=== PATIENT | female | born 1990 | race Caucasian/White ===

== ENCOUNTER 2022-06-22 08:44 | Outpatient (CLI) | payer OTHER, SELFPAY ==
--- NOTE | 2022-06-22 08:45 | CRLHL7_ITS ---
For Patients: As a result of the Century Cures Act, medical imaging exams and procedure reports are released immediately into your electronic medical record. You may view this report before your referring provider. If you have questions, please contact your health care provider. INDICATION: First trimester scan, establish dates. COMPARISON: None. TECHNIQUE: Real-time wallis-scale imaging of the pelvis was performed. FINDINGS: Intrauterine gestational sac is present with a mean sac diameter of 15.3 cm and sonographic age of 6 weeks 1 day. pole is present with crown-rump length measuring 3 millimeters corresponding to a 6 week 0 day gestation. Yolk sac is normal measuring 3.2 millimeters. No heart tones on today`s exam. The ovaries are normal. Incidental corpus luteal cyst left ovary. No ectopic . IMPRESSION: Intrauterine pole is present measuring 3.4 millimeters without heart tones. This may simply represent a very early intrauterine and follow-up and 11-14 days is recommended. Dictated by Jared Oliver MD @ 06/22/2022 9:38:13 AM (Electronically Signed)
== END 2022-06-22 08:45 | disposition home or self-care (01) ==
LOC: US 08:45
PROVIDERS: PCP Family Medicine; Visit Provider Advanced Practice Midwife
DX: Z34.91 Encounter for supervision of normal pregnancy, unspecified, first trimester (principal); Z3A.01 Less than 8 weeks gestation of pregnancy
CPT/HCPCS: 76817

== ENCOUNTER 2022-06-24 10:10 | Outpatient (CLI) | payer OTHER, SELFPAY | END 2022-06-24 10:11 | disposition home or self-care (01) | LOC: NFLDREF 10:11 | PROVIDERS: PCP Family Medicine; Visit Provider Advanced Practice Midwife | DX: O03.9 Complete or unspecified spontaneous abortion without complication (principal) | CPT/HCPCS: 84702 ==

== ENCOUNTER 2022-07-02 11:28 | Outpatient (CLI) | payer OTHER, SELFPAY | END 2022-07-02 11:29 | disposition home or self-care (01) | PROVIDERS: Advanced Practice Midwife; PCP Family Medicine; Visit Provider Advanced Practice Midwife | DX: O03.9 Complete or unspecified spontaneous abortion without complication (principal); N93.9 Abnormal uterine and vaginal bleeding, unspecified | CPT/HCPCS: 84702 ==

== ENCOUNTER 2022-08-13 12:39 | Outpatient (CLI) | payer OTHER, SELFPAY ==
[2022-08-13 13:42] LABS: Albumin* 4.9 g/dL (3.3-5.0); Chloride* 103 mmol/L (96-114); Sodium* 139 mmol/L (135-149)
[2022-08-13 13:44] LABS: Carbon Dioxide* 29 mmol/L (20-32); Cholesterol* 209 mg/dL (90-199); Creatinine* 0.6 mg/dL (0.5-1.5); Estimated Glomerular Filt Rate 121 ml/min
[2022-08-13 13:45] LABS: Alanine Aminotransferase* 23 U/L (4-35); Alkaline Phosphatase* 43 U/L (40-150); Aspartate Amino Transferase* 28 U/L (12-35); Bilirubin Total* 1.1 mg/dL (0.1-1.5); Blood Urea Nitrogen* 15 mg/dL (5-24); Calcium* 9.5 mg/dL (8.4-10.6); Glucose* 89 mg/dL (60-115); HDL Cholesterol* 85 mg/dL (>=50); LDL Cholesterol Calculated 110 mg/dL (<100); Total Protein* 7.6 g/dL (6.0-8.3); Triglycerides* 71 mg/dL (40-149)
== END 2022-08-13 12:40 | disposition home or self-care (01) ==
PROVIDERS: PCP Family Medicine; Visit Provider Family Medicine
DX: Z00.00 Encounter for general adult medical examination without abnormal findings (principal); R79.89 Other specified abnormal findings of blood chemistry; E78.5 Hyperlipidemia, unspecified
CPT/HCPCS: 80053; 80061

== ENCOUNTER 2022-09-29 14:01 | Outpatient (CLI) | payer OTHER, SELFPAY | END 2022-09-29 14:02 | disposition home or self-care (01) | LOC: NFLDREF 09-30 02:51 | PROVIDERS: PCP Family Medicine; Referring Provider Family Medicine; Visit Provider Physician Assistant | DX: Z34.90 Encounter for supervision of normal pregnancy, unspecified, unspecified trimester (principal) | CPT/HCPCS: 84702 ==

== ENCOUNTER 2022-10-01 12:36 | Outpatient (CLI) | payer OTHER, SELFPAY | END 2022-10-01 12:37 | disposition home or self-care (01) | LOC: NFLDREF 17:41 | PROVIDERS: PCP Family Medicine; Referring Provider Family Medicine; Visit Provider Physician Assistant | DX: Z34.90 Encounter for supervision of normal pregnancy, unspecified, unspecified trimester (principal) | CPT/HCPCS: 84702 ==

== ENCOUNTER 2022-10-19 15:49 | Outpatient (CLI) | payer OTHER, SELFPAY ==
[2022-10-19 22:58] LABS: Chlamydia DNA Amplified* Not Detected (No Detected); GC DNA Amplified* Not Detected (No Detected)
== END 2022-10-19 15:50 | disposition home or self-care (01) ==
PROVIDERS: PCP Family Medicine; Visit Provider Physician Assistant
DX: Z34.91 Encounter for supervision of normal pregnancy, unspecified, first trimester (principal); Z3A.08 8 weeks gestation of pregnancy
CPT/HCPCS: 76817; 86592; 86703; 86762; 86787; 86803; 86850; 86900; 86901; 87086; 87340; 87491; 87591

== ENCOUNTER 2022-10-25 12:50 | Outpatient (CLI) | payer OTHER, SELFPAY ==
--- NOTE | 2022-10-25 13:00 | CRLHL7_ITS ---
For Patients: As a result of the Century Cures Act, medical imaging exams and procedure reports are released immediately into your electronic medical record. You may view this report before your referring provider. If you have questions, please contact your health care provider. INDICATION: Spotting TECHNIQUE: Real-time wallis-scale imaging of the pelvis was performed. Comparison ultrasound 10/19/2022 FINDINGS: Sonographic imaging demonstrates a single living intrauterine gestation. The embryo demonstrates a regular cardiac rate measuring 171 beats per minute. The embryo`s crown-rump length measurement of 2.4 cm corresponds to a gestational age of 9 weeks 1 day with a sonographic due date of 05/29/2023. Subchorionic hemorrhage measuring 2.8 x 1.6 x 2.8 centimeters. Yolk sac normal. IMPRESSION: 1.Early intrauterine gestation at 9 weeks 1 day with OTIS of 05/29/2023. 2.Subchorionic hemorrhage measuring 2.8 x 1.6 x 2.8 centimeters within the right uterus / lower uterine segment. Dictated by Sia Goodrich MD @ 10/25/2022 1:54:11 PM (Electronically Signed)
== END 2022-10-25 12:51 | disposition home or self-care (01) ==
LOC: US 12:51
PROVIDERS: PCP Family Medicine; Visit Provider Obstetrics & Gynecology
DX: O20.9 Hemorrhage in early pregnancy, unspecified (principal); Z3A.09 9 weeks gestation of pregnancy
CPT/HCPCS: 76817

== ENCOUNTER 2023-01-11 08:07 | Outpatient (CLI) | payer OTHER, SELFPAY ==
--- NOTE | 2023-01-11 08:15 | CRLHL7_ITS ---
For Patients: As a result of the Century Cures Act, medical imaging exams and procedure reports are released immediately into your electronic medical record. You may view this report before your referring provider. If you have questions, please contact your health care provider. INDICATION: Evaluate anatomy. COMPARISON: 10/25/2022, 10/19/2022 TECHNIQUE: Real time wallis scale imaging of the fetus was performed as well as color Doppler analysis of the umbilical vessels. FINDINGS: Sonographic imaging demonstrates a single living intrauterine gestation. Fetus demonstrates a regular cardiac rate of 149 beats per minute. Fetus has a vertex position. The placenta lies anteriorly without evidence of placenta previa. The edge of the placenta is located 7.7 cm from the internal cervical os. Amniotic fluid volume appears normal. Single deepest vertical pocket: 4.9 cm. The cervix is closed and measures 5.5 cm in length. The composite ultrasound gestational age is calculated at 21 weeks 0 days with an estimated sonographic due date of 05/24/2023. The estimated weight is 430 grams which lies at the greater than 97th %. The following biometric measurements were obtained: Biparietal diameter: 4.7 cm/20 weeks 2 days 60th% Head circumference: 18.1 cm/20 weeks 4 days 66th% Abdominal circumference: 17.6 cm/22 weeks 4 days greater than 97th% Femur length: 3.4 cm/20 weeks 5 days 67th% The HC/AC ratio measures: 1.03 range (1.06-1.25) On anatomic survey, there is a normal appearance of the cerebral ventricles, cavum septi pellucidi, cisterna magna and cerebellum. The nose, lips, and facial profile appear normal. The cervical, thoracic and lumbar spine are well visualized and appear normal. There is a normal four-chamber heart view and the left and right ventricular outflow tracts appear normal. The diaphragm and stomach appear normal. The kidneys and bladder also appear normal. There is a normal three-vessel cord and cord insertion site. The four extremities appear normal. IMPRESSION: Sonographic gestational age 21 weeks 0 days and sonographic due date of 05/24/2023. Sonographic age one-week Ativan clinical age. Estimated weight greater than 97th percentile. Abdominal circumference greater than 97th percentile. No intrinsic abnormalities noted on anatomic survey. Dictated by Jared Oliver MD @ 01/11/2023 11:54:49 AM (Electronically Signed)
== END 2023-01-11 08:08 | disposition home or self-care (01) ==
PROVIDERS: PCP Family Medicine; Visit Provider Advanced Practice Midwife
DX: Z34.92 Encounter for supervision of normal pregnancy, unspecified, second trimester (principal); Z3A.20 20 weeks gestation of pregnancy
CPT/HCPCS: 76805

== ENCOUNTER 2023-03-09 14:29 | Outpatient (CLI) | payer OTHER, SELFPAY | END 2023-03-09 14:30 | disposition home or self-care (01) | LOC: NFLDREF 03-12 12:11 | PROVIDERS: PCP Family Medicine; Referring Provider Family Medicine; Visit Provider Obstetrics & Gynecology | DX: Z34.93 Encounter for supervision of normal pregnancy, unspecified, third trimester (principal); Z3A.28 28 weeks gestation of pregnancy | CPT/HCPCS: 86592 ==

== ENCOUNTER 2023-03-18 07:46 | Outpatient (CLI) | payer OTHER, SELFPAY | END 2023-03-18 07:47 | disposition home or self-care (01) | LOC: NFLDREF 03-22 09:15 | PROVIDERS: PCP Family Medicine; Referring Provider Family Medicine; Visit Provider Obstetrics & Gynecology | DX: Z34.93 Encounter for supervision of normal pregnancy, unspecified, third trimester (principal); Z3A.29 29 weeks gestation of pregnancy | CPT/HCPCS: 82951; 82952 ==

== ENCOUNTER 2023-05-02 09:12 | Outpatient (CLI) | payer OTHER, SELFPAY ==
--- NOTE | 2023-05-02 09:15 | CRLHL7_ITS ---
For Patients: As a result of the Century Cures Act, medical imaging exams and procedure reports are released immediately into your electronic medical record. You may view this report before your referring provider. If you have questions, please contact your health care provider. INDICATION: Third trimester scan, evaluate growth. COMPARISON: 01/11/2023 TECHNIQUE: Real time wallis scale imaging of the fetus was performed. FINDINGS: Sonographic imaging demonstrates a single living intrauterine gestation. Fetus demonstrates a regular cardiac rate of 127 beats per minute. Fetus has a vertex position. The placenta lies anteriorly. Amniotic fluid volume appears normal and there is a single deepest vertical pocket: 6.8 cm. The estimated weight is 2942gm which lies at the 67th %. On the prior OB ultrasound exam dated 01/11/2023 the estimated weight was at the greater than 97th%. BPD 18th percentile. HC 52nd percentile. AC 89th percentile. FL 39th percentile. The HC/AC ratio measures 0.99 range (0.92-1.08). IMPRESSION: Sonographic gestational age 36 weeks 1 day and sonographic due date of 05/29/2023. Good correlation with dates. Normal interval growth. Estimated weight 67th percentile. Abdominal circumference 89th percentile. Dictated by Jared Oliver MD @ 05/02/2023 10:12:47 AM (Electronically Signed)
== END 2023-05-02 09:13 | disposition home or self-care (01) ==
LOC: US 09:12
PROVIDERS: PCP Family Medicine; Visit Provider Obstetrics & Gynecology
DX: Z34.93 Encounter for supervision of normal pregnancy, unspecified, third trimester (principal); Z3A.36 36 weeks gestation of pregnancy
CPT/HCPCS: 76816; 87081; 87653

== ENCOUNTER 2023-05-04 14:06 | Outpatient (CLI) | payer OTHER, SELFPAY ==
[2023-05-04 14:20] VITALS: BP 120/72; PULSE 90
[2023-05-04 14:23] VITALS: RESP 16; TEMP 36.8
[2023-05-04 15:29] LABS: Amnisure Rom* Negative
[2023-05-04 15:58] LABS: Clue Cells No Clue Cells Seen (None Seen); Trichomonas No Trichomonas Seen (None Seen); Yeast No Yeast Seen (None Seen)
--- NOTE | 2023-05-04 16:52 | PM.OBLDTN ---
OB - Triage/Final Diagnosis Visit Information Time Seen by Provider: 16:30 Date Seen: 05/04/23 Date of evaluation: 05/04/23 Narrative: The patient is a 1 year old 2 para 1001 at 36 1/7 weeks gestation by LMP, who presents with complaint of vaginal spotting. This occurred twice. Denies painful uterine contractions, though has occasional tightening. Denies a decrease in movement. Feels well hydrated. Denies dysuria. Has some vaginal discharge, without vulvovaginal itching or irritation. The patient has a history of delivery, and at this time, is uncertain whether she desires TOLAC or repeat delivery. She has been discussing mode of delivery with Dr. Gleason. Evaluation Laboratory results: Laboratory Tests 05/04/23 Range/Units 15:02 Membrane Rupture Negative Vaginal Trichomonas No Trichomonas Seen (None Seen) Vaginal Yeast No Yeast Seen (None Seen) Vaginal Clue Cells No Clue Cells Seen (None Seen) Vital signs: Vital Signs - 24 hr 05/04/23 14:20 05/04/23 14:23 Temperature 98.2 F Pulse Rate 90 Respiratory Rate 16 Blood Pressure 120/72 Comments: General appearance: Alert, cooperative white female in no acute distress Abdomen: Soft, gravid, nontender vertex presentation by Omar's : Normal external female genitalia Extremities: Nonedematous, well perfused Labs: AmniSure negative. Wet prep negative. heart rate monitoring: Category 1. Uterine activity monitoring: Occasional mild contractions, irregular Fetus (Single) Heart Rate Baseline: 125 Thermograph Operator Variability: Moderate (6-25) Monitor Accelerations: Present Monitor Decelerations: None Final Diagnosis (1) Spotting affecting in third trimester: Status: Acute (2) Previous delivery affecting : Status: Acute (3) Spotting affecting in third trimester: Status: Acute (4) Previous delivery affecting : Status: Acute OB - Problem Based A/P Additional Plan (1) Spotting affecting in third trimester: Status: Acute (2) Previous delivery affecting : Status: Acute Plan At this time, the patient is not actively bleeding, and there is no sign of active labor. Her AmniSure and wet prep were both negative. Will plan to discharge her to home with instructions to return for decreased movement, renewed vaginal bleeding, increased contraction intensity or frequency, or abdominal pain. Otherwise, follow-up is scheduled in clinic.
--- NOTE | 2023-05-04 17:10 | PC.OBNST ---
NST Note NST Note Start: 05/04/23 14:22 Freq: ONCE Status: Active Protocol: Document 05/04/23 17:08 MALDONADO (Rec: 05/04/23 17:09 MALDONADO [id number]) NST Note 2 Para (# of births) 1 EDC 05/31/23 Gestational Age In Weeks & Days 36 Weeks & 1 Days Patient Presented with Complaint(s) of Leaking fluid,Vaginal bleeding Reactive Yes Appropriate for Gestational Age Yes RN Kristie Logan RN Date 05/04/23 Reactive Yes Appropriate for Gestational Age Yes DANIEL Ledezma RN Date 05/04/23 OB NST charge Yes Complete NST Note via Write Note Yes The provider's electronic signature indicates the NST is reactive/appropriate for gestational age. *Note to provider: If an addendum is required, open the patient's chart and click on the note under the Nurse/Allied Health tab.
== END 2023-05-04 16:40 | disposition home or self-care (01) ==
LOC: OB OUT 14:06 → OB 14:07
PROVIDERS: PCP Family Medicine; Visit Provider Advanced Practice Midwife
DX: O26.853 Spotting complicating pregnancy, third trimester (principal); Z3A.36 36 weeks gestation of pregnancy
CPT/HCPCS: 59025; 84112; 87210; 99213

== ENCOUNTER 2023-05-05 09:40 | Inpatient (IN) | payer OTHER, SELFPAY ==
[2023-05-05] VITALS (12 sets, daily range): BP systolic 97–124; BP diastolic 55–78; PULSE 71–87; RESP 14–16; TEMP 36.6–37.2; BMI 23.7
[2023-05-05 09:14] LABS: Amnisure Rom* POSITIVE
[2023-05-05] MEDS: OXYTOCIN 30 unit/500 ML in NS 30 UNIT/500 ML BAG IVPB (10:15)
[2023-05-05] MEDS: LACTATED RINGERS 1000 ML 1,000 ML 125 ML IV ×2 (10:15→18:40)
--- NOTE | 2023-05-05 10:21 | P.OBHP_ITS ---
OB - H&P: HPI Labor/Induction History of Present Illness Time Seen by Provider: 10:00 Date Seen: 05/05/23 Chief Complaint: The patient is a 33 year old 3 para 1011 at 36 and 2/7 weeks gestation by LMP consistent with a 1st trimester ultrasound, who presents with leaking fluid vaginally since she woke up at 4:30 a.m. today. AmniSure positive. Brett sporadically. Chief complaint: Maternity : 3 Para: 1 Indications for induction: other (PPROM) Narrative: HPI: Gerardo Keller is a 33 year old female 3 para 1011 at 36 weeks and 2 days gestation with pre term premature rupture of membranes. She desires a trial of labor after . Consent form reviewed and questions answered. 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 She notice clear leaking at 4:30 a.m. this morning. She has continued to have small amount of leaking since then. GBS negative. Her last baby born by for intolerance of labor and chorioamnionitis. OBSTETRIC HISTORY: Total number of pregnancies: 1. Full term: 1. Premature: 00. Abortions: 0. Miscarriages: 1. Ectopics: 0. Number of living children: 1 Previous Deliveries: 1. Date: 12/19/2019. Male, Domo. 40+4. 9 lb 10 oz. delivery for chorioamnionitis and nonreassuring status. Delivered at [place]. No other complications. 2. Spontaneous SAB Contraception being uses during time of conception: no. Last menstrual period normal: Yes. Usual length of cycle: 28 days. Treatment for infertility: No. LMP: 08/24/2022. Last pap: 04/21/2018. History of abnormal pap: Yes, please see problem list. History of STI or PID: Denies History of MRSA: Denies. PAST MEDICAL HISTORY: See problem list IMMUNIZATIONS: Up-to-date, COVID vaccinated. 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 Marital status: . Anglican/cultural needs: no. Chemical or radiation exposure: no. Pre- tobacco use: No. Pre- alcohol use: no. Current tobacco use: no. Current alcohol use: no. Recreational drug use: no. Dietary restrictions: no. Blood transfusion acceptable in an emergency: yes. FAMILY AND GENETIC HISTORY: Negative for recurrent loss, defects, inheritable disease Father: Factor 5 Leiden mutation Mother and maternal grandmother: Hypertension PSYCHOSOCIAL HISTORY: History of depression or currently depressed: no. Current physical, emotional, or sexual mistreatment: no. Problems that will make it hard to make it to appointments: no. Past medical, surgical, family and social histories were reviewed in the patient's electronic medical record. Specific Issues/Plans Girl! Cristi Garcia Son: Domo Spouse: Heraclio 1. Factor 5 Leiden mutation, heterozygous * No personal history of VTE * Father with history of a DVT * Per ACOG recommendations: Surveillance versus prophylactic anticoagulation. Patient declines anticoagulation. * : prophylactic anticoagulation therapy or intermediate dose low molecular weight heparin/unfractioned heparin * Aspirin 81 mg 2. History of macrosomia, 9 lb 10 oz * EFW >97% at 20wk scan, AC >97% 3. History of , chorioamnionitis and nonreassuring status. Considering TOLAC. * Desires * Growth ultrasound at 36 weeks: ordered * TOLAC consent: Given to patient on 03/23/23. Signed 04/04/2023. 4. History of LEEP * LEEP 2012: CHANA 2 with clear margins. Normal Pap with HPV 01/2014, 03/2015, 04/2018 * Deferred Pap at new OB, Pap 5. Bleeding at 8 weeks, 6 days. Viable IUP. Subchorionic hemorrhage 2.8 cm in greatest dimension. Blood type O+. 6. Abnormal 1 hour glucose screen 03/09/2023: 164 * 3 hour GTT 03/18/2023: 74/156/105/110 (Normal) TDAP: 03/23/23 History of Present Dating criteria: based on LMP care: good care Ultrasounds: normal 1st trimester US and normal mid trimester US complications comment: PPROM today at 04:30Am, clear fluid Medical complications: none Labs Blood type: O (+) positive Rubella: immune RPR/VDLR: nonreactive GBS status: negative HBsAG: negative Meds Home Medications and Allergies Home Medications Medication Instructions Recorded Confirmed Type docosahexaenoic acid 200 mg mg PO 10/19/22 05/02/23 History capsule ( DHA) omega 4-eav-rba-fish oil 300 1 cap PO QDAY 10/19/22 05/05/23 History mg-1,000 mg capsule (Fish Oil) aspirin 81 mg tablet,delayed 81 mg PO QDAY 11/16/22 05/05/23 History release (Enteric Coated Aspirin) apple cider vinegar gummy PO DAILY 12/14/22 05/02/23 History Allergies Allergy/AdvReac Type Severity Reaction Status Date / Time amoxicillin Allergy Mild Abdominal Verified 05/02/23 10:06 Pain itraconazole Allergy Mild Rash Verified 05/02/23 10:06 OB - H&P: Exam Physical Exam: Vital signs: Temp Pulse BP 97.9 F 87 124/78 05/05/23 08:56 05/05/23 08:56 05/05/23 08:56 Narrative: GENERAL APPEARANCE: Pleasant, , well-groomed woman in no acute distress. VITAL SIGNS: as noted in nursing notes HEAD: Pupils are equal, round and reactive to light. No oral-pharyngeal erythema or exudate. Normocephalic, atraumatic. NECK: Normal range of motion. Supple and nontender. THYROID: no masses, nodularity, tenderness or enlargement. LUNGS: Clear to auscultation bilaterally without wheezes, rales or rhonchi. HEART: Regular rate and rhythm with normal S1 and S2. No gallop, rub or murmur. ABDOMEN: Gravid, nontender appropriate fundal height for gestation. EFM: Baseline 130bpm, moderate variability, accelerations: Present, dece lerations: Absent. Reactive. Category 1. TOCO: Irritability with sporadic contractions that the patient states feels like ?Irvin Kemp?. SVE per nursing: Closed/long/thick/high EXTREMITIES: No cyanosis, clubbing, or edema. No varicosities. NEUROLOGIC: Normal gait and balance. Normal deep tendon reflexes at bilateral patella 2+/2, equal without clonus. PSYCHIATRIC: alert and oriented x3. Normal speech pattern, eye contact and affect. SKIN: Warm, dry, and well perfused. Good turgor. No lesions, nodules or rashes. OB - Problem Based A/P Additional Plan (1) premature rupture of membranes (PPROM) delivered, current hospitalization: Start date: 05/05/23 Start time: 04:30 Problem details: Clear fluid Status: Acute Plan: 1. Patient is planning a TOLAC. 2. Prostaglandins are contraindicated in patients were attempting a vaginal after section. 3. Cervical balloon contraindicated in patient with premature rupture of membranes. Due to increased risk for infection with a foreign body in place. 4. Start Pitocin per induction protocol. 5. Continuous heart rate and contraction monitoring. 6. GBS negative, blood type O positive (2) : Status: Acute
[2023-05-05 11:18] LABS: Basophils Absolute Auto 0.02 K/uL (0.00-0.30); Basophils Percent Auto 0.3 % (0.0-3.0); Eosinophils Absolute Auto 0.01 K/uL (0.00-0.50); Eosinophils Percent Auto 0.2 % (0.0-7.0); Hematocrit 36.5 % (33.0-51.0); Hemoglobin* 12.3 gm/dL (12.0-16.0); Immature Granulocytes Abs Auto 0.02 K/uL (0.00-0.30); Immature Granulocytes Pct Auto 0.3 %; Lymphocytes Absolute Auto 1.45 K/uL (0.90-2.90); Lymphocytes Percent Auto 22.1 % (20-44); Mean Corpuscular HGB Conc 34 gm/dL (32-36); Mean Corpuscular Hemoglobin 30 pg (26-34); Mean Corpuscular Volume 89 fL (80-100); Monocytes Percent Auto 6.1 % (0.0-11.0); Neutrophils Absolute Auto 4.67 K/uL (1.7-7.0); Platelet Count* 179 K/uL (140-440); RDW Coefficient of Variation % 12.8 % (11.5-15.5); Red Blood Count 4.09 m/uL (4.00-5.20); White Blood Count* 6.57 K/uL (4.50-11.00)
[2023-05-05 11:23] LABS: Slide Review Reflex No
[2023-05-06] VITALS (81 sets, daily range): BP systolic 91–184; BP diastolic 51–107; PULSE 62–160; RESP 14–18; TEMP 36.5–37.7; O2SAT 96–100
[2023-05-06] MEDS: ROPIVACAINE 0.2% 100 ml 100 ML 12 MG EPIDURAL ×2 (06:04→13:12)
--- NOTE | 2023-05-06 06:14 | P.OBPN_ITS ---
Subjective Time Seen by Provider: 05:00 Date Seen: 05/06/23 Narrative: Subjective: Patient rating her pain approximately 2/10 on 20 milliunits/minute of Pitocin. Verbal consent obtained for rupture of membranes. Objective: Vital signs show blood [id number]'s/60's. Afebrile. [place]: Q 2 minutes EFW: 135, moderate variability, positive accelerations, no decelerations, reactive. SVE at 5:00 a.m.: , rupture of forebag clear fluid. Assessment: Early labor on Pitocin after P prom at 36 weeks 2 days gestation now 36 weeks 3 days gestation. Plan: 1. The patient began feeling more uncomfortable with contractions with the 1st contraction after the rupture of the forebag. 2. Pitocin was turned off within 45 minutes after rupture of membranes with the patient continuing to have contractions every 1-2 minutes. 3. Patient received an epidural at approximately 6:10 a.m. Objective Vital Signs: Last Vital Signs Temp 98 F 05/06/23 02:15 Pulse 77 05/06/23 06:13 Resp 16 05/06/23 02:15 BP 116/65 05/06/23 06:13 Pulse Ox 99 05/06/23 06:12
--- NOTE | 2023-05-06 06:18 | P.ANBPRC_ITS ---
[facility] Medical History Chorioamnionitis ?O41.1290 - Chorioamnionitis, unspecified trimester, not applicable or unspecified (ICD-10) Dysphagia ?R13.10 - Dysphagia, unspecified (ICD-10) GERD (gastroesophageal reflux disease) ?K21.9 - Gastro-esophageal reflux disease without esophagitis (ICD-10) History of cervical dysplasia ?Z87.410 - Personal history of cervical dysplasia (ICD-10) Tinea versicolor ?B36.0 - Pityriasis versicolor (ICD-10) Surgical History History of loop electrical excision procedure (LEEP) (2012) ?Z98.890 - Other specified postprocedural states (ICD-10) Status post primary low transverse section (2019) ?Z98.891 - History of uterine scar from previous surgery (ICD-10) History of colposcopy with cervical biopsy (2012) ?Z98.890 - Other specified postprocedural states (ICD-10) Family History Family/Other Diabetes Father Factor V Leiden mutation Mother High blood pressure Maternal Grandmother High blood pressure Social History Narrative: , RN same day surgery, 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 non-smoker social drinker- 3/week What is your current living situation?: I presently have a place to live Problems where you live: no known problems In the past 12 months, utilities in danger of being shut off: no In past 12 months, lack of transportation kept you from medical appts, meetings, work, or getting things needed for daily living: no In the past 12 mos, have been you worried that your food would run out before you had money to buy more?: never true In the past 12 mos, the food you bought just didn't last and you didn't have money to buy more?: never true Smoking Status: Never smoker How often does anyone, including family, friends and others, physically hurt you : never How often does anyone, including family, friends and others, insult or talk down to you: never How often does anyone, including family, friends and others, threaten you with harm: never How often does anyone, including family, friends and others, scream or curse at you: never Little interest or pleasure in doing things: not at all Feeling down, depressed, or hopeless: not at all Meds Home Medications and Allergies Home Medications Medication Instructions Recorded Confirmed Type docosahexaenoic acid 200 mg mg PO 10/19/22 05/02/23 History capsule ( DHA) omega 3-fdw-eyu-fish oil 300 1 cap PO QDAY 10/19/22 05/05/23 History mg-1,000 mg capsule (Fish Oil) aspirin 81 mg tablet,delayed 81 mg PO QDAY 11/16/22 05/05/23 History release (Enteric Coated Aspirin) apple cider vinegar gummy PO DAILY 12/14/22 05/02/23 History Allergies Allergy/AdvReac Type Severity Reaction Status Date / Time amoxicillin Allergy Mild Abdominal Verified 05/02/23 10:06 Pain itraconazole Allergy Mild Rash Verified 05/02/23 10:06 Results Labs Labs: Laboratory Results - last 24 hr 05/05/23 05/05/23 08:48 11:10 WBC 6.57 RBC 4.09 Hgb 12.3 Hct 36.5 MCV 89 MCH 30 MCHC 34 RDW Coeff of Seb 12.8 Plt Count 179 Neut % (Auto) 71.0 Lymph % (Auto) 22.1 [place] % (Auto) 6.1 Eos % (Auto) 0.2 Baso % (Auto) 0.3 Neut # (Auto) 4.67 Lymph # (Auto) 1.45 [place] # (Auto) 0.40 Eos # (Auto) 0.01 Baso # (Auto) 0.02 Abs Immat Gran (auto) 0.02 Imm/Tot Granulo (auto) 0.3 Membrane Rupture POSITIVE Blood Type O Positive Antibody Screen NEGATIVE Vital Signs Vital Signs: Last Vital Signs Temp 98 F 05/06/23 02:15 Pulse 81 05/06/23 06:17 Resp 16 05/06/23 02:15 BP 115/63 05/06/23 06:17 Pulse Ox 99 05/06/23 06:12 Weight: 66.678 kg Height: 167.64 cm Anesthesia Procedures Epidural Insertion Patient Location: OB Start Time: 05:45 Stop Time: 06:20 Start Date: 05/06/23 Stop Date: 05/06/23 Reason for Block: primary anesthetic Patient Position: sitting Performed By: Bib Alberto Preanesthetic Checklist: IV checked, risks and benefits discussed, surgical consent, monitors and equipment checked, pre-op evaluation, timeout performed and anesthesia consent Prep: chlorhexidine gluconate Monitoring: blood pressure monitoring, personnel monitor, continuous pulse oximetry and heart rate Approach: midline Vertebral Space: lumbar (1-5) Needle Type: Tuohy needle Injection Technique: continuous catheter (catheter) Needle gauge: 17 Needle Length (cm): 10 cm Needle Insertion Depth (cm): 4 Catheter Gauge: 19 Catheter Type: multi-orifice Catheter at skin depth (cm): 9 Test Dose Result: negative and lidocaine 1.5% with epinephrine 1 to 200,000
--- NOTE | 2023-05-06 06:20 | P.OBPN_ITS ---
Subjective Time Seen by Provider: 06:21 Date Seen: 05/06/23 Narrative: S: Gerardo is comfortable with the epidural. Objective: Vital signs per electronic medical record. External monitor: heart rate 135, moderate variability, accelerations present, decelerations absent, reactive. [place]: 2-4 minutes, patient not feeling them. SVE: /-1 Assessment: Early labor after PProm. 36weeks 3 days gestation, PProm occurred at 4:30 a.m. on 05/05/2023 Plan: 1. Restarted Pitocin at 1 milliunits/minute 2. Expect successful . Objective Vital Signs: Last Vital Signs Temp 98 F 05/06/23 02:15 Pulse 77 05/06/23 06:19 Resp 16 05/06/23 02:15 BP 113/61 05/06/23 06:19 Pulse Ox 99 05/06/23 06:12
[2023-05-06] MEDS: LACTATED RINGERS 1000 ML 1,000 ML 114 ML IV ×2 (06:21→14:20)
[2023-05-06] MEDS: PHENYLEPHRINE 100 MCG/ML SYRINGE IVP (06:48)
--- NOTE | 2023-05-06 11:18 | P.OBPN_ITS ---
Subjective Time Seen by Provider: 11:00 Date Seen: 05/06/23 Narrative: Gerardo is feeling a little bit of pressure intermittently in her bottom. She is not feeling any contractions. She is comfortable with epidural. Objective Exam: General: NAD, lying in bed Abdominal exam: Uncertain of position of back; it may be that the back is directly in the midline. Sterile vaginal exam: 6 cm, 90%,-1 station, deviated to patient's left Vital Signs: Last Vital Signs Temp 98.7 F 05/06/23 11:05 Pulse 77 05/06/23 11:06 Resp 16 05/06/23 11:05 BP 102/59 L 05/06/23 11:06 Pulse Ox 99 05/06/23 06:12 Contractions Contraction Frequency: Every 2-3 minutes Contraction pattern: Regular Pitocin Rate (mU/min): 5 Assessment Assessment: active labor Amniotic Membrane Status: SROM Status: Category l Heart Rate Baseline: 140 Retirement Variability: Moderate (6-25) Monitor Accelerations: Present Monitor Decelerations: None Tracing Comments: Reassuring Labor Progress: TOLAC. Now entering active labor. Maternal Status: Stable Plan Plan: Continue pitocin augmentation at current rate. Repeat exam at 1 PM
--- NOTE | 2023-05-06 13:31 | PM.OBPNL ---
Subjective Time Seen by Provider: 13:00 Date Seen: 05/06/23 Narrative: Gerardo is feeling more pressure in her bottom. She is feeling some contractions. She is comfortable with epidural. Objective Exam: General: NAD, lying in bed Sterile vaginal exam: complete, +2 Vital Signs: Last Vital Signs Temp 99.8 F H 05/06/23 12:53 Pulse 75 05/06/23 13:21 Resp 16 05/06/23 12:53 BP 121/60 05/06/23 13:21 Pulse Ox 99 05/06/23 06:12 Contractions Contraction Frequency: Every 2-3 minutes Contraction pattern: Regular Pitocin Rate (mU/min): 5 Assessment Assessment: active labor (second stage) Amniotic Membrane Status: SROM Status: Category l Heart Rate Baseline: 140 Residential Variability: Moderate (6-25) Monitor Accelerations: Present Monitor Decelerations: None Tracing Comments: Reassuring Labor Progress: TOLAC. Now entering second stage Maternal Status: Stable Plan Plan: Continue pitocin augmentation at current rate. Begin pushing.
[2023-05-06] MEDS: LIDOCAINE 1 % PF 30 ML INJECTION (15:25)
--- NOTE | 2023-05-06 15:57 | W.PM.VAGDEL1 ---
Procedure Procedure Done: Global Procedure Details: The patient is a 33 year-old G 3 P 1 woman admitted on 05/05/2023 at 36 Weeks, 2 Days gestation for PPROM.? Cervical exam on admission was closed / long / high membranes ruptured in vertex presentation.? Contractions were infrequent. SROM occurred at 4:30 a.m. on 05/05/2023 with clear fluid. ? Labor Analgesia:? Epidural ? Pitocin:? Yes ? Labor onset:? 5:00 a.m. on 05/06/2023 ? Complete:? 12:56 p.m. on 05/06/2023 ? Pushing:? 11:00 p.m. ? heart tones during second stage were reassuring, with some intermittent variable decelerations and moderate variability. ? At 3:18 p.m. a viable female delivered in vertex OA presentation over small second-degree perineal laceration via spontaneous vaginal delivery.? Infant was placed on maternal abdomen.? Cord was clamped and cut after a 60 second delay.? Nose and mouth were bulb suctioned.? weight 7 lb, 4 oz.? 8 at 1 minute and 8 at 5 minutes.? Shoulder dystocia: No.? Nuchal cord: No. ? Placenta delivered spontaneously and complete at 3:23 p.m. with a 3 vessel cord. ? Mother and were stable after delivery. ? Lacerations:? Bilateral periurethral lacerations and midline second-degree perineal laceration, repaired with 3-0 Vicryl after infiltration with approximately 10 mL of 1% lidocaine. ? Blood loss: 271 mL. Blood loss measurement type: QBL ? Sponge and needles counts are correct.
[2023-05-06] MEDS: IBUPROFEN 600 MG TABLET PO ×2 (16:32→22:59)
[2023-05-06] MEDS: ACETAMINOPHEN 500 MG TABLET 1000 MG PO (19:08)
[2023-05-07] MEDS: ACETAMINOPHEN 500 MG TABLET 1000 MG PO ×4 (02:03→20:06)
[2023-05-07 04:23] VITALS: BP 102/66; PULSE 83; RESP 18; TEMP 36.6; O2SAT 97
[2023-05-07] MEDS: IBUPROFEN 600 MG TABLET PO ×3 (04:46→18:38)
[2023-05-07 07:24] LABS: Hemoglobin* 9.4 gm/dL (12.0-16.0)
[2023-05-07 07:55] VITALS: BP 106/67; PULSE 86; RESP 16; TEMP 36.6; O2SAT 98
[2023-05-07] MEDS: DOCUSATE SODIUM 100 MG CAPSULE PO (08:18)
[2023-05-07 12:15] VITALS: BP 108/69; PULSE 78; RESP 16; TEMP 36.5; O2SAT 98
--- NOTE | 2023-05-07 12:50 | PM.OBPNVD1 ---
OB - PN:Subj Subjective Time Seen by Provider: 09:00 Date Seen: 05/07/23 Narrative: Overnight patient had no complaint. She was very happy with her experience. Her pain is well controlled on oral pain medications. She is tolerating a regular diet. She has passed flatus. She is ambulating without difficulty. Lochia is scant. She is urinating without castellano. Patient denies chest pain, SOB, n/v, headache, RUQ pain, vision changes, dizziness. OB - PN: Obj Exam Physical Exam: Vital signs: Temp Pulse Resp BP Pulse Ox O2 Del Method 97.7 F 78 16 108/69 98 Room Air 05/07/23 12:15 05/07/23 12:15 05/07/23 12:15 05/07/23 12:15 05/07/23 12:15 05/07/23 12:15 Narrative: Physical exam: General: No acute distress Psych: Alert and oriented x4, full affect HEENT: Normocephalic, atraumatic Neck: No cervical adenopathy, no thyromegaly Heart: Regular rate and rhythm, no murmur rub or gallop Lungs: Clear to auscultation bilaterally Abdomen: Normoactive bowel sounds, soft, no tenderness, rebound, or guarding, no masses, no hepatosplenomegaly, no hernias. Fundus firm - 2 cm below umbilicus Skin: No lesions or rashes Lower extremities: No edema or erythema Pelvic exam: Scant lochia OB - PN: Obj Data Labs Labs: Laboratory Results - last 24 hr 05/05/23 05/07/23 11:10 06:37 Hgb 9.4 L Crossmatch (AHG) See Detail OB - PN: A/P Delivery Assessment and Plan (1) (vaginal after ): Status: Acute Plan Review: - Admitted for: PPROM - Estimated blood loss: 271 mL - Complications: none - Urine output: adequate - Preop/predelivery Hgb: 12.3 - Preop/predelivery Hgb: 9.4 Postoperative/Postdelivery care: - Diet: Advance as tolerated - Fluid: Encourage oral intake - Activity: Encourage ambulation and incentive spirometry - Pain: Acetaminophen, Ibuprofen - DVT prophylaxis: SCDs and TEDs when not ambulating Factor 5 Leiden mutation, heterozygous - No personal history of VTE - Father with history of a DVT - Per ACOG recommendations: Surveillance versus prophylactic anticoagulation. Patient declines anticoagulation. - : prophylactic anticoagulation therapy or intermediate dose low molecular weight heparin/unfractionated heparin. Patient declined anticoagulation. Said she's very active and will be vigilant. Discharge Planning - Follow Up: follow-up at 2 weeks and 6 weeks in clinic Baby's Status - Fetus: 8, 8. 7lb 3.875oz, female - Location: Bedside Dispo: Patient is PPD#1. Need the following milestones: None. Waiting on baby's milestones. Anticipate discharge PPD#2. Plan day: 1 Plan: routine care
[2023-05-07 16:10] VITALS: BP 113/74; PULSE 85; RESP 16; TEMP 36.5; O2SAT 98
[2023-05-07 16:15] VITALS: BP 113/74
[2023-05-07 19:53] VITALS: BP 108/71; PULSE 80; RESP 18; TEMP 36.9; O2SAT 98
[2023-05-08 03:57] VITALS: BP 112/69; PULSE 76; RESP 18; TEMP 36.5; O2SAT 96
[2023-05-08] MEDS: IBUPROFEN 600 MG TABLET PO (03:59)
[2023-05-08 07:35] VITALS: BP 111/72; PULSE 86; RESP 16; TEMP 36.8; O2SAT 97
--- NOTE | 2023-05-08 10:40 | PM.OBDSVD1 ---
DS: Providers Provider Time Seen by Provider: 09:00 Date Seen: 05/08/23 Date of admission: 05/05/23 09:40 Primary care physician: Mi Luciano MD Admitting Clinician: Jamee Medina MD Attending Physician on discharge: Jamee Medina MD Date of Discharge: 05/08/23 DS: Diagnosis Discharge Diagnosis (1) (vaginal after ): Status: Acute (2) Heterozygous factor V Leiden mutation: Status: Acute Exam Narrative: Exam Narrative: General: No acute distress Psych: Alert and oriented x4, full affect HEENT: Normocephalic, atraumatic Neck: No cervical adenopathy, no thyromegaly Heart: Regular rate and rhythm, no murmur rub or gallop Lungs: Clear to auscultation bilaterally Abdomen: Normoactive bowel sounds, soft, no tenderness, rebound, or guarding, no masses, no hepatosplenomegaly, no hernias. Fundus firm - 2 cm below umbilicus Skin: No lesions or rashes Lower extremities: No edema or erythema Pelvic exam: Scant lochia Const: Vital Signs, click to edit/add: Vital Signs - 24 hr 05/07/23 12:15 05/07/23 16:10 05/07/23 16:15 Temperature 97.7 F 97.7 F Pulse Rate [Pulse Oximeter] 78 85 Respiratory Rate 16 16 Blood Pressure [Ri ght Arm] 108/69 113/74 113/74 Pulse Oximetry 98 98 Oxygen Delivery Me thod Room Air Room Air 05/07/23 19:53 05/08/23 03:57 05/08/23 07:35 Temperature 98.5 F 97.7 F 98.3 F Pulse Rate [Pulse Oximeter] 80 76 86 Respiratory Rate 18 18 16 Blood Pressure [Ri ght Arm] 108/71 112/69 111/72 Pulse Oximetry 98 96 97 Oxygen Delivery Me thod Room Air Room Air Room Air OB - DS: Summary Hospital Course Hospital Course: Gerardo is a 33 year old G 3 P 2013 at 36.2 weeks gestation that was admitted to the Center on 05/05/23 for PPROM. She had an uncomplicated delivery. She delivered a viable female infant. She is breast feeding. the patient has done well. Overnight patient had no complaints. Her pain is well controlled on oral pain medications. She is tolerating a regular diet. She has passed flatus and BM. She is ambulating without difficulty. Lochia is scant. She is urinating without castellano. Patient denies chest pain, SOB, n/v, headache, RUQ pain, vision changes, dizziness. Factor 5 Leiden mutation, heterozygous - No personal history of VTE - Father with history of a DVT - Per ACOG recommendations: Surveillance versus prophylactic anticoagulation. Patient declines anticoagulation. - : prophylactic anticoagulation therapy or intermediate dose low molecular weight heparin/unfractionated heparin. Patient declined anticoagulation. Said she's very active and will be vigilant. Encouraged compression socks and IS use. Time spent discussing smoking cessation with patient: 3 to 10 minutes Infant Gender: Female Time Spent with Patient Time attestation: Total time spent providing and/or coordinating discharge services: Discharge Plan Discharge Disposition: Home, Self-Care Date of Admission: 05/05/23 09:40 Attending Provider on Discharge: Christine Gleason MD Primary Care Provider: Mi Luciano Condition: Stable Anticipated Discharge Date/Time: 05/08/23 09:58 Discharge Medications: New acetaminophen 500 mg Tablet 1,000 mg PO Q6H PRN30 Days Qty: 60 0RF Dermoplast (with menthol) 20-0.5 % Aerosol 1 spray topical QID PRN30 Days Qty: 56 0RF docusate sodium 100 mg Capsule 100 mg PO DAILY 30 Days Qty: 30 0RF ibuprofen 600 mg Tablet 600 mg PO Q6H PRN30 Days Qty: 60 0RF Lanolin (HPA) 100 % Cream 1 applic topical Q1H PRNQty: 21 0RF simethicone 80 mg Tablet,Chewable 80 - 160 mg PO Q4H PRN (Reason: gas) 30 Days Qty: 30 0RF Continued DHA 200 mg capsule PO omega 6-kwi-ksb-fish oil [Fish Oil] 300-1,000 mg capsule 1 cap PO QDAY aspirin [Enteric Coated Aspirin] 81 mg tablet,delayed release (DR/EC) 81 mg PO QDAY valacyclovir 1 gram tablet 2,000 mg PO BID PRN (Reason: cold sores) Qty: 20 1RF Rx Instructions: 2 tab immediately, repeat in 12h x1, use as needed for cold sores apple cider vinegar gummy PO DAILY Discharge Orders: Discharge Order (Routine); Ordered 05/08/23 Ordered By: Christine Gleason Patient Education: Vaginal Delivery (DC) Activity Detail: Pelvic rest x 6 weeks Discharge Diet: Regular Follow Up Appointments: Mi Luciano MD [Primary Care Provider] - Forms: MyHealth Info Instructions Discharge Comments: Follow up at 2 and 6 weeks
== END 2023-05-08 12:00 | disposition home or self-care (01) | DRG 806 ==
LOC: OB OUT 09:41 → OB 09:41
PROVIDERS: Obstetrics & Gynecology; Admitting Provider Obstetrics & Gynecology; PCP Family Medicine; Visit Provider Obstetrics & Gynecology
DX: O42.013 Preterm premature rupture of membranes, onset of labor within 24 hours of rupture, third trimester (principal); D68.51 Activated protein C resistance; Z37.0 Single live birth; O99.12 Other diseases of the blood and blood-forming organs and certain disorders involving the immune mechanism complicating childbirth; O34.211 Maternal care for low transverse scar from previous cesarean delivery; O70.1 Second degree perineal laceration during delivery; Z3A.36 36 weeks gestation of pregnancy
CPT/HCPCS: 01967; 36415; 84112; 85018; 85025; 86850; 86900; 86901; 86922; 88307; A9270; J2001; J2371; J2795; J7120

== ENCOUNTER 2024-07-09 08:48 | Outpatient (CLI) | payer OTHER, SELFPAY | END 2024-07-09 08:49 | disposition home or self-care (01) | LOC: NFLDREF 07-10 02:27 | PROVIDERS: PCP Family Medicine; Referring Provider Family Medicine; Visit Provider Family Medicine | DX: Z13.228 Encounter for screening for other metabolic disorders (principal); Z13.220 Encounter for screening for lipoid disorders | CPT/HCPCS: 80053; 80061 ==

== ENCOUNTER 2024-11-06 13:01 | Outpatient (CLI) | payer BC, SELFPAY ==
--- NOTE | 2024-11-06 13:00 | CRLHL7_ITS ---
For Patients: As a result of the Cures Act, medical imaging exams and procedure reports are released immediately into your electronic medical record. You may view this report before your referring provider. If you have questions, please contact your health care provider. OB ULTRASOUND INDICATION: Dating, viability. TECHNIQUE: Real time wallis scale imaging of the fetus was performed. Transvaginal imaging performed. LMP: 09/10/2024. OTIS by LMP: 06/17/2025. GA: 8 w, 1 d. Previous US: No. CRL: 2.1 cm. 8 w 5 d. OTIS: 06/13/2025. FHR: 178 BPM. Gestational sac: 3.5 cm. Appears within normal limits. Yolk sac: 3.1 mm. Appears within normal limits. Right ovary: 3.9 x 2.4 x 2.5. CL. Left ovary: 3.2 x 1.4 x 2.4 cm. IMPRESSION: 1. Single living intrauterine measuring 8 weeks 5 days and sonographic due date 06/13/2025. 2. Subchorionic hemorrhage measures 2.0 x 1.3 x 1.9 cm. Jared Oliver M.D. Diagnostic Radiologist [email or web address] EDI/Dictated by: Jared Oliver MD @ 11/06/2024 8:13:00 PM (Electronically Signed)
== END 2024-11-06 13:02 | disposition home or self-care (01) ==
LOC: US 13:04
PROVIDERS: PCP Family Medicine; Visit Provider Registered Nurse
DX: Z34.91 Encounter for supervision of normal pregnancy, unspecified, first trimester (principal); O20.9 Hemorrhage in early pregnancy, unspecified; Z3A.08 8 weeks gestation of pregnancy
CPT/HCPCS: 76817; 83021; 86703; 86706; 86803; 86850; 86900; 86901; 87086; 87340; 87491; 87591

== ENCOUNTER 2024-11-06 13:40 | Outpatient (CLI) | payer BC, SELFPAY ==
[2024-11-06 22:40] LABS: Chlamydia DNA Amplified* NOT DETECTED (No Detected); GC DNA Amplified* NOT DETECTED (No Detected)
== END 2024-11-06 13:41 | disposition home or self-care (01) ==
PROVIDERS: PCP Family Medicine; Visit Provider Registered Nurse
DX: Z34.91 Encounter for supervision of normal pregnancy, unspecified, first trimester (principal); O20.9 Hemorrhage in early pregnancy, unspecified; Z3A.08 8 weeks gestation of pregnancy
CPT/HCPCS: 83020; 83021; 85660; 86592; 86703; 86704; 86706; 86762; 86787; 86803; 86850; 86900; 86901; 87086; 87340; 87491; 87591

== ENCOUNTER 2025-01-02 15:16 | Outpatient (CLI) | payer BC, SELFPAY | END 2025-01-02 15:17 | disposition home or self-care (01) | LOC: NFLDREF 15:16 | PROVIDERS: PCP Family Medicine; Visit Provider Obstetrics & Gynecology | DX: Z34.92 Encounter for supervision of normal pregnancy, unspecified, second trimester (principal); Z3A.16 16 weeks gestation of pregnancy | CPT/HCPCS: 86706 ==

== ENCOUNTER 2025-01-30 11:57 | Outpatient (CLI) | payer BC, SELFPAY | END 2025-01-30 11:58 | disposition home or self-care (01) | LOC: NFLDREF 11:58 | PROVIDERS: PCP Family Medicine; Visit Provider Obstetrics & Gynecology | DX: R06.02 Shortness of breath (principal); Z13.29 Encounter for screening for other suspected endocrine disorder | CPT/HCPCS: 84443 ==

== ENCOUNTER 2025-02-13 14:00 | Outpatient (CLI) | payer BC, SELFPAY ==
--- NOTE | 2025-02-13 14:00 | CRLHL7_ITS ---
For Patients: As a result of the Cures Act, medical imaging exams and procedure reports are released immediately into your electronic medical record. You may view this report before your referring provider. If you have questions, please contact your health care provider. OBSTETRICAL ULTRASOUND LIMITED WITH TRANSVAGINAL IMAGING, 02/13/2025 INDICATION: Cervical length. History of . CLINICAL HISTORY: LMP: 09/10/2024 OTIS by LMP: 06/17/2025 Gestational Age: 22 weeks 2 days COMPARISON: 01/01/2025, 12/04/2024, 11/06/2024. TECHNIQUE: Real-time wallis-scale transabdominal and transvaginal imaging of the fetus was performed. Transvaginal imaging was performed for better visualization of cervix. FINDINGS: Fetus: Single Cervix: Visualized, 3.8 cm transvaginal positioning: Breech Amniotic Fluid: 4.8 cm SDP heart rate: 159 bpm IMPRESSION: The cervix is closed and measures 3.8 cm. No funneling. JARED MOROCHO M.D. Diagnostic Radiologist [email or web address] Transcribed: 3:[address]/Dictated by: Jared Morocho MD @ 02/13/2025 2:55:00 PM (Electronically Signed)
== END 2025-02-13 14:01 | disposition home or self-care (01) ==
LOC: US 14:00
PROVIDERS: PCP Family Medicine; Visit Provider Obstetrics & Gynecology
DX: O09.212 Supervision of pregnancy with history of pre-term labor, second trimester (principal); Z3A.22 22 weeks gestation of pregnancy
CPT/HCPCS: 76815; 76817

== ENCOUNTER 2025-03-28 08:45 | Outpatient (CLI) | payer BC, SELFPAY | END 2025-03-28 08:46 | disposition home or self-care (01) | LOC: NFLDREF 04-01 03:59 | PROVIDERS: PCP Family Medicine; Referring Provider Family Medicine; Visit Provider Obstetrics & Gynecology | DX: Z34.93 Encounter for supervision of normal pregnancy, unspecified, third trimester (principal) | CPT/HCPCS: 86592 ==

== ENCOUNTER 2025-03-29 07:06 | Outpatient (CLI) | payer BC, SELFPAY ==
--- NOTE | 2025-03-29 07:15 | CRLHL7_ITS ---
For Patients: As a result of the Cures Act, medical imaging exams and procedure reports are released immediately into your electronic medical record. You may view this report before your referring provider. If you have questions, please contact your health care provider. OB ULTRASOUND OTIS by LMP: 06/17/2025. GA: 28 w, 4 d. Single. Comparison: 02/13/2025, 01/29/2025, 01/01/2025. INDICATION: Growth. TECHNIQUE: Real time wallis scale imaging of the fetus was performed. Transabdominal imaging performed. CERVIX: Not visualized. POSITIONING: Transverse maternal right. AMNIOTIC FLUID: 6.2 cm SDP (N: greater than 2 x 1 cm) PLACENTA: Technique: Transabdominal. PLACENTA POSITION: Fundal/Posterior. DOPPLER: heart rate: 165 bpm. BIOMETRY: BPD: 7.3 cm. 29 w, 2 d, 63%. HC: 27.9 cm. 30 w, 4 d, 78%. AC: 26.5 cm. 30 w, 4 d, 93%. FL: 5.7 cm. 30 w, 1 d, 77%. FL/AC ratio: 21.64 percent. HC/AC ratio: 1.05. EFW: 1557g. Weight: 3 lbs., 7 oz. age by this US: 30 w, 1 d. OTIS by this US: 06/06/2025. Percentile by OTIS: 94%. IMPRESSION: 1. Sonographic gestational age 30 weeks 1 day and sonographic due date 06/06/2025. Sonographic age is 11 days ahead of the clinical age. 2. Estimated weight 94th percentile. Abdominal circumference 93rd percentile. Jared Oliver M.D. Diagnostic Radiologist [email or web address] JUAN DANIEL/shira silva/Dictated by: Jared Oliver MD @ 03/29/2025 11:36:00 AM (Electronically Signed)
== END 2025-03-29 07:07 | disposition home or self-care (01) ==
LOC: US 07:07
PROVIDERS: PCP Family Medicine; Visit Provider Obstetrics & Gynecology
DX: O09.523 Supervision of elderly multigravida, third trimester (principal); Z3A.28 28 weeks gestation of pregnancy
CPT/HCPCS: 76816

== ENCOUNTER 2025-05-10 13:47 | Outpatient (CLI) | payer BC, SELFPAY ==
--- NOTE | 2025-05-10 13:45 | CRLHL7_ITS ---
For Patients: As a result of the Cures Act, medical imaging exams and procedure reports are released immediately into your electronic medical record. You may view this report before your referring provider. If you have questions, please contact your health care provider. OBSTETRICAL ULTRASOUND ??? FOLLOW-UP INDICATION: ADHD medication use in . Follow-up growth. CLINICAL HISTORY: OTIS by LMP: 06/17/2025 Gestational Age: 34 weeks 4 days COMPARISON: 01/26/2025, 02/13/2025, 01/29/2025, 01/01/2025. TECHNIQUE: Real-time wallis-scale transabdominal imaging of the fetus was performed. FINDINGS: Fetus: Single Cervix: Not visualized positioning: Vertex Amniotic Fluid: 4.7 cm SDP Placenta technique: Transabdominal Placenta position: Fundal, posterior heart rate: 161 bpm BIOMETRY: BPD: 8.1 cm, 32 weeks 5 days, 7% HC: 31.8 cm, 35 weeks 5 days, 43% AC: 33.5 cm, 37 weeks 3 days, >97% FL: 6.6 cm, 34 weeks 0 days, 25% FL/AC Ratio: 19.65% HC/AC ratio: 0.95 EFW: 2784 grams; 6 lbs. 2 oz. age by this ultrasound: 35 weeks 0 days OTIS by this ultrasound: 06/14/2025 Percentile by OTIS: 81% IMPRESSION: 1. Sonographic gestational age is 35 weeks 0 days and sonographic due date is 06/14/2025. Good correlation with dates. Normal interval growth. 2. Estimated weight is 81st percentile. Abdominal circumference is greater than 97th percentile. JARED MOROCHO M.D. Diagnostic Radiologist [email or web address] Transcribed: 3:[address]/Dictated by: Jared Morocho MD @ 05/10/2025 2:20:00 PM (Electronically Signed)
== END 2025-05-10 13:48 | disposition home or self-care (01) ==
LOC: US 13:48
PROVIDERS: PCP Family Medicine; Visit Provider Obstetrics & Gynecology
DX: O99.343 Other mental disorders complicating pregnancy, third trimester (principal); F98.8 Other specified behavioral and emotional disorders with onset usually occurring in childhood and adolescence; Z3A.34 34 weeks gestation of pregnancy
CPT/HCPCS: 76816

== ENCOUNTER 2025-05-22 14:45 | Outpatient (CLI) | payer BC, SELFPAY | END 2025-05-22 14:46 | disposition home or self-care (01) | LOC: NFLDREF 05-26 16:09 | PROVIDERS: PCP Family Medicine; Referring Provider Family Medicine; Visit Provider Obstetrics & Gynecology | DX: Z34.93 Encounter for supervision of normal pregnancy, unspecified, third trimester (principal) | CPT/HCPCS: 87081; 87653 ==

== ENCOUNTER 2025-05-31 11:55 | Outpatient (CLI) | payer BC, SELFPAY ==
[2025-05-31 12:17] VITALS: BP 132/73; PULSE 85; PULSE 90; O2SAT 97
[2025-05-31 12:18] VITALS: RESP 16; TEMP 37.1
[2025-05-31 12:49] LABS: Amnisure Rom* Negative
--- NOTE | 2025-05-31 13:05 | PC.OBNST ---
NST Note NST Note Start: 05/31/25 11:58 Freq: ONCE Status: Active Protocol: Document 05/31/25 13:00 [facility] (Rec: 05/31/25 13:05 [facility] [id number]) NST Note 4 Para (# of births) 2 EDC 06/17/25 Gestational Age In 37 Weeks & 4 Days Weeks & Days High Risk Factors History of Labor/Delivery Patient Presented Leaking fluid with Complaint(s) of Reactive Yes Appropriate for Yes Gestational Age DANIEL Mckinney RN Date 05/31/25 Reactive Yes Appropriate for Yes Gestational Age DANIEL Plascencia RNC Date 05/31/25 OB NST charge Yes Complete NST Note Yes via Write Note The provider's electronic signature indicates the NST is reactive/appropriate for gestational age. *Note to provider: If an addendum is required, open the patient's chart and click on the note under the Nurse/Allied Health tab.
== END 2025-05-31 13:00 | disposition home or self-care (01) ==
LOC: OB OUT 11:56 → OB 11:57
PROVIDERS: PCP Family Medicine; Visit Provider Obstetrics & Gynecology
DX: O47.1 False labor at or after 37 completed weeks of gestation (principal); Z3A.38 38 weeks gestation of pregnancy
CPT/HCPCS: 59025; 84112; G0463

== ENCOUNTER 2025-06-03 13:35 | Outpatient (CLI) | payer BC, SELFPAY ==
--- NOTE | 2025-06-03 13:30 | CRLHL7_ITS ---
For Patients: As a result of the Century Cures Act, medical imaging exams and procedure reports are released immediately into your electronic medical record. You may view this report before your referring provider. If you have questions, please contact your health care provider. OB ULTRASOUND LMP: 09/10/2024. OTIS by LMP: 06/17/2025. GA: 38 w, 0 d. Single. Comparison: 05/10/2025, 03/29/2025, 02/13/2025. INDICATION: Growth. History of macrosomia and TOLAC. TECHNIQUE: Real time grayscale imaging of the fetus was performed. Transabdominal. CERVIX: Not visualized. POSITIONING: Vertex. AMNIOTIC FLUID: 7.9 cm. SDP (N: greater than 2 x 1 cm) PLACENTA: Technique: Transabdominal. PLACENTA POSITION: Posterior. DOPPLER: heart rate: 112-154 bpm. BIOMETRY: BPD: 8.7 cm. 35 w, 1 d, 7.0%. HC: 33.4 cm. 38 w, 1 d, 34.1%. AC: 36.5 cm. 40 w, 3 d, >97%. FL: 7.1 cm. 36 w, 1 d, 12.4%. FL/AC ratio: 19.4%. HC/AC ratio: 0.9. EFW: 3533g. Weight: 7 lbs., 13 oz. age by this US: 37 w, 3 d. OTIS by this US: 06/21/2025. Percentile by OTIS: 76.4%. IMPRESSION: 1. Sonographic gestational age 37 weeks 3 days and sonographic due date 06/21/2025. Good correlation with dates. Normal interval growth. 2. Estimated weight 76th percentile. Abdominal circumference greater than 97th percentile. 3. heart rate between 112 and 154 beats per minute. Jared Oliver M.D. Diagnostic Radiologist [email or web address] JUAN DANIEL/shira silva/Dictated by: Jared Oliver MD @ 06/04/2025 7:12:00 AM (Electronically Signed)
== END 2025-06-03 13:36 | disposition home or self-care (01) ==
LOC: US 13:35
PROVIDERS: PCP Family Medicine; Visit Provider Obstetrics & Gynecology
DX: O09.293 Supervision of pregnancy with other poor reproductive or obstetric history, third trimester (principal); Z3A.38 38 weeks gestation of pregnancy
CPT/HCPCS: 76816

== ENCOUNTER 2025-06-04 02:51 | Outpatient (CLI) | payer BC, SELFPAY ==
[2025-06-04 02:58] VITALS: BP 118/67; PULSE 81; PULSE 88; RESP 18; O2SAT 99
[2025-06-04 02:59] VITALS: BP 118/67; PULSE 81
[2025-06-04 03:03] VITALS: PULSE 70; O2SAT 98
[2025-06-04 03:08] VITALS: PULSE 97; O2SAT 98
[2025-06-04 03:10] VITALS: TEMP 36.9
[2025-06-04 03:13] VITALS: PULSE 109; O2SAT 98
--- NOTE | 2025-06-04 07:13 | PC.OBNST ---
NST Note NST Note Start: 06/04/25 07:11 Freq: Status: Active Protocol: Document 06/04/25 07:00 ASHLEY (Rec: 06/04/25 07:12 ASH[facility] [id number]) NST Note 4 Para (# of births) 2 EDC 06/17/25 Gestational Age In 38 Weeks & 1 Days Weeks & Days Patient Presented Contractions/cramping with Complaint(s) of Reactive Yes Appropriate for Yes Gestational Age RN Patsy Brewster RN Date 06/04/25 Reactive Yes Appropriate for Yes Gestational Age DANIEL Cleveland RN Date 06/04/25 OB NST charge Yes Complete NST Note Yes via Write Note The provider's electronic signature indicates the NST is reactive/appropriate for gestational age. *Note to provider: If an addendum is required, open the patient's chart and click on the note under the Nurse/Allied Health tab.
== END 2025-06-04 07:00 | disposition home or self-care (01) ==
LOC: OB OUT 02:52 → OB 02:53
PROVIDERS: PCP Family Medicine; Visit Provider Obstetrics & Gynecology
DX: O47.1 False labor at or after 37 completed weeks of gestation (principal); Z3A.38 38 weeks gestation of pregnancy
CPT/HCPCS: 59025; G0463; A9270

== ENCOUNTER 2025-06-05 22:32 | Outpatient (CLI) | payer BC, SELFPAY ==
[2025-06-05 22:40] VITALS: BP 127/79; PULSE 93; PULSE 96; O2SAT 93
[2025-06-05 23:00] VITALS: TEMP 36.8
[2025-06-05 23:01] LABS: Amnisure Rom* Negative
--- NOTE | 2025-06-06 02:55 | PC.OBNST ---
NST Note NST Note Start: 06/05/25 22:40 Freq: ONCE Status: Active Protocol: Document 06/06/25 02:28 CJM (Rec: 06/06/25 02:55 CJM No Response) NST Note 4 Para (# of births) 2 EDC 06/17/25 Gestational Age In 38 Weeks & 3 Days Weeks & Days Patient Presented Contractions/cramping,Leaking fluid with Complaint(s) of Reactive Yes Appropriate for Yes Gestational Age RN Whitney Brewster RN Date 06/06/25 Reactive Yes Appropriate for Yes Gestational Age DANIEL Sharma RN Date 06/06/25 OB NST charge Yes Complete NST Note Yes via Write Note The provider's electronic signature indicates the NST is reactive/appropriate for gestational age. *Note to provider: If an addendum is required, open the patient's chart and click on the note under the Nurse/Allied Health tab.
== END 2025-06-06 02:28 | disposition home or self-care (01) ==
LOC: OB OUT 22:33 → OB 22:34
PROVIDERS: PCP Family Medicine; Visit Provider Obstetrics & Gynecology
DX: O47.1 False labor at or after 37 completed weeks of gestation (principal); Z3A.38 38 weeks gestation of pregnancy
CPT/HCPCS: 36415; 59025; 84112; 85018; 85025; 86780; 86850; 86900; 86901; G0463; A9270; J2003; J2405

== ENCOUNTER 2025-06-07 03:30 | Inpatient (IN) | payer BC, SELFPAY ==
[2025-06-07] VITALS (19 sets, daily range): BP systolic 109–129; BP diastolic 67–85; PULSE 60–95; RESP 12–20; TEMP 36.3–36.8; O2SAT 97–100
[2025-06-07 03:54] LABS: Hematocrit* 36.8 % (33.0-51.0); Hemoglobin* 12.0 gm/dL (12.0-16.0); Immature Granulocytes Abs Auto 0.02 K/uL (0.00-0.30); Immature Granulocytes Pct Auto 0.3 %; Lymphocytes Absolute Auto 2.19 K/uL (0.90-2.90); Mean Corpuscular HGB Conc 33 gm/dL (32-36); Mean Corpuscular Hemoglobin 29 pg (26-34); Mean Corpuscular Volume 89 fL (80-100); RDW Coefficient of Variation % 13.4 % (11.5-15.5); Red Blood Count* 4.14 m/uL (4.00-5.20); White Blood Count* 7.09 K/uL (4.50-11.00)
[2025-06-07 03:55] LABS: Slide Review Reflex No
[2025-06-07] MEDS: ONDANSETRON 2 MG/ML inj 4 MG IV (04:07)
[2025-06-07] MEDS: OXYTOCIN 30 unit/500 ML in NS 30 UNIT/500 ML BAG 300 UNIT IVPB (04:30)
[2025-06-07] MEDS: LIDOCAINE 1 % PF 30 ML INJECTION (04:35)
[2025-06-07] MEDS: IBUPROFEN 600 MG TABLET PO ×3 (05:01→18:22)
--- NOTE | 2025-06-07 05:03 | P.LDBA_ITS ---
Subjective History of Present Illness Date Seen: 06/07/25 Narrative: Patient is being admitted to Labor and Delivery for SROM and active labor. She is a 35 year old at weeks gestation. Her full history and physical was dictated by myself on 05/27/25. Please see this for details. 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 Gleason 05/27/25 # Factor 5 Leiden, heterozygous * No personal h/o VTE * Father with h/o DVT * Per ACOG: Surveillance vs. prophylactic anticoagulation. Declined Lovenox in previous x2. Patient declines anticoagulation, MFM states this is reasonable as well. * : PP prophylactic anticoagulation therapy recommended by MFM if C/S at least inpt, consider 6 weeks * No specific recommendation if by MFM. FYI Patient declined with last 2 pregnancies. * Daily 81mg Aspirin #Thickened NT (2.5mm) # Advanced Maternal Age * Low risk NIPT * Early anatomy US at 16 weeks with MFM - see below * Level 2 US: normal as below * FYI echo not recommended as less than 3mm # History of macrosomia, 9lb 10oz * [x] Repeat growth at 38 weeks # ADD. Taking Adderall on intermittent basis since . Hoping to decrease dose to 10mg daily. She is struggling with the fact that she needs it with this . Didn't take it in previous 2 pregnancies. Reviewed potential risks with her and directed her to [email or web address]. Encouraged her to continue on Adderall. * Referral to [facility] medication consult - try to reduce to 10mg daily on work days, support continued use if needed * Level 2 normal as below * Plan 28 and 34 week growth if continues on stimulant in * consult if planning to BF while on stimulant (supportive of BF if normal weight/no sx in ) # History of due to chorioamnionitis and nonreassuring status. Successful . Planning vaginal . [X] TOLAC consult, consent signed 01/30 [ ] 38 week growth US # History of LEEP in 2012. CHANA 2 w/ clear margins. Normal pap with HPV 01/2014, 03/2015, 04/2018, 06/2023. # Amoxicillin allergy - reported abdominal pain. No rash or swelling. Did not refer for allergy testing, as this isn't a true allergy. # Child w/ Atrial Septal Defect - pt reported PDA or PFO to [facility]. No echo recom mended. Notify peds of Hx at time of delivery. # History of delivery. 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 Discussed on 03/20/2025. Patient will consider. # GBS negative Imaging: * 12/04: [facility] US with CRL measuring 12w4d, thickened NT at 2.5mm. Posterior placenta, +FHR. Grossly normal cranium, abdominal wall, stomach, bladder, arms/legs. Nasal bone present. * 01/01: Normal early anatomy US. EFW at 88%ile, AC 85%ile. Posterior placenta, no previa. MVP 4.7cm. Cx 3.3cm. * 01/29: level 2. Breech, posterior placenta without previa, 3 VC, SDP 6.4 cm, EFW 84%, AC 68%, female, normal visualized anatomy * 02/13: Cervical length 3.8 cm, no evidence of funneling, breech presentation, SDP 4.8 cm. * 03/29/2025: Transverse backup presentation, EFW 1557 g or 3 lb 7 oz (94%), BPD 63%, HC 78%, AC 93%, FL 77%, SDP 6.2 cm * 05/10: EFW 2784g at 81%ile - BPD 7%, HC 43%, AC >97%, FL 25%. MVP 4.7cm. Vertex. FHR 161bpm. * 06/03: EFW 3533 g or 7 lb 13 oz (76%), BPD 7%, HC 34%, AC >97%, FL 12%, SDP 7.9 cm, vertex. Vaccinations: COVID: declines Flu: will get through work Tdap: given 04/22/25 RSV: had in 04/25 32 week mental health: 04/22/25 GBS negative Last pap: [Only high-risk abnormal pap results in problem list] OB - Problem Based A/P Additional Plan (1) Advanced maternal age (AMA) in : Status: Acute (2) Previous delivery affecting : Status: Resolved (3) Hx successful (vaginal after ), currently : Status: Acute (4) Heterozygous factor V Leiden mutation: Status: Chronic Plan - Admit for labor/TOLAC - GBS negative - Declined epidural - Expectant management - OR team notified OB Exam Physical Exam Vital signs: Pulse BP Pulse Ox 87 129/81 100 06/07/25 04:50 06/07/25 04:50 06/07/25 04:44 Narrative: Physical exam: General: No acute distress Psych: Alert and oriented x3, full affect HEENT: Normocephalic, atraumatic Lungs: Unlabored breathing Neuro: No focal deficit. Mentating appropriately Pelvic exam: 6.5/90/0 per RN
--- NOTE | 2025-06-07 05:17 | W.PM.VAGDEL1 ---
Procedure Delivery date: 06/07/25 Procedure Done: Global Events: Previous and AMA Intrapartal Events: None Delivery monitor: external FHT Route of delivery: Episiotomy description: None Narrative: The patient is a 35 year-old G 4 P 2011 admitted on 06/07/2025 at 38 and 4/7 weeks gestation for SROM and active labor. Her history if significant for Factor 5 Leiden, heterozygous, AMA, Hx of x, Hx of x 1, Hx of LEEP in 2013, Hx of delivery, indeterminate hepatitis B antibody results GBS negative Labor Analgesia: None for labor and delivery. Lidocaine for laceration repair Pitocin: For active 3rd stage management only SROM: 06/07/25 at 0230, with clear fluid Labor onset: 06/07/25 at 0351 Complete: 06/07/25 at 0419 Pushin06/07/25 at 0414 heart tones during second stage were cat II. Prolonged deceleration down to the 70-80s during but delivery was imminent. Moderate variability and +accelerations. At 0424 a viable female (Ashlyn) delivered in vertex OA presentation over intact via spontaneous vaginal delivery. Patient pushing on hands and knees. The 's body was delivered in the usual manner without difficulty. The infant given to father. The cord was clamped and cut after a 30-60 second delay. The nose and mouth were bulb suctioned. weight: Pending. 9 at 1 minute and 9 at 5 minutes. Shoulder dystocia: No. Nuchal cord: No Placenta delivered spontaneously and complete at 0431 with a 3-vessel cord. Placenta examined and noted to be complete. Placenta was not sent to pathology. The cervix and vagina were inspected for lacerations. Laceration(s): 1st degree perineal repaired with 2-0 vicryl. Small bilateral periureteral, repaired one figure of 8 each using 3-0 vicyl. Complications: None Estimated blood loss: 100 cc Sponge and needles counts are correct. Mother and were stable at the time of this note. Gender: Female total score - 1 minute: 9 total score - 5 minute: 9
[2025-06-07] MEDS: DOCUSATE SODIUM 100 MG CAPSULE PO (11:53)
[2025-06-08 03:00] VITALS: BP 106/67; PULSE 68; RESP 18; O2SAT 97
[2025-06-08] MEDS: IBUPROFEN 600 MG TABLET PO (03:15)
[2025-06-08 07:11] LABS: Hemoglobin* 10.9 gm/dL (12.0-16.0)
--- NOTE | 2025-06-08 09:49 | PM.OBDSVD1 ---
DS: Providers Provider Date Seen: 06/08/25 Date of admission: 06/07/25 03:30 Primary care physician: Mi Luciano MD Admitting Clinician: Christine Gleason MD Attending Physician on discharge: Patsy Patel MD Date of Discharge: 06/08/25 DS: Diagnosis Discharge Diagnosis (1) Hx successful (vaginal after ), currently : Status: Acute Exam Narrative: Exam Narrative: GENERAL APPEARANCE:? normal affect, alert, no distress MOOD:? appropriate CHEST:? clear to auscultation HEART:? regular rate and rhythm ABDOMEN:? soft, non-tender the uterine fundus is At Umbilicus, Midline and is appropriate for the stage of recovery. EXTREMITIES:? normal and no edema Const: Vital Signs, click to edit/add: Vital Signs - 24 hr 06/07/25 11:49 06/07/25 16:06 06/07/25 21:07 Temperature 98.0 F 97.4 F L Pulse Rate [Pulse Oximeter] 78 79 68 Respiratory Rate 12 16 20 Blood Pressure [Ri ght Arm] 123/72 115/72 119/68 Pulse Oximetry 98 97 97 Oxygen Delivery Me thod Room Air Room Air Room Air 06/08/25 03:00 Temperature Pulse Rate [Pulse Oximeter] 68 Respiratory Rate 18 Blood Pressure [Ri ght Arm] 106/67 Pulse Oximetry 97 Oxygen Delivery Me thod Room Air OB - DS: Summary Hospital Course Hospital Course: The patient is a 35 year old G 4 P 301 3 at 384/7 weeks gestation that was admitted to the Center on 06/07/25 in labor for delivery. She had an uncomplicated vaginal after section delivery. She delivered a viable female . She is breast feeding. the patient has done well. Peripartum Data delivery method: Laceration description: Perineal - 1st Degree complications: none [place] Infant Gender: Female Discharge Plan: Home Status at Discharge Functional status at discharge: independent ambulation Overall status at discharge: patient is progressing back to baseline Time Spent with Patient Time attestation: Total time spent providing and/or coordinating discharge services: Time spent: Less than 30 minutes Discharge Plan Discharge Disposition: Home, Self-Care Date of Admission: 06/07/25 03:30 Attending Provider on Discharge: Heaven Patel Primary Care Provider: Mi Luciano Condition: Stable Anticipated Discharge Date/Time: 06/08/25 10:00 Discharge Medications: New acetaminophen 500 mg Tablet 1,000 mg PO Q6H PRNQty: 20 0RF ibuprofen 600 mg Tablet 600 mg PO Q6H PRNQty: 20 0RF Continued valacyclovir 1 gram tablet 2,000 mg PO BID PRN (Reason: cold sores) Qty: 20 1RF Rx Instructions: 2 tab immediately, repeat in 12h x1, use as needed for cold sores DHA 200 mg capsule 200 mg PO DAILY ferrous sulfate 324 mg (65 mg iron) tablet,delayed release (DR/EC) 324 mg PO QDAY ondansetron HCl 4 mg tablet 4 mg PO Q6-8H PRN (Reason: nausea and vomiting) Qty: 30 0RF dextroamphetamine-amphetamine [Adderall XR] 10 mg capsule,extended release 24hr 10 mg PO QAM Qty: 30 0RF Rx Instructions: needs be seen in office 06/2025 Discontinued aspirin 81 mg tablet 81 mg PO QDAY Discharge Orders: Discharge Order (Routine); Ordered 06/08/25 Ordered By: Heaven Patel Patient Education: OB Over the Counter Medication Information, OB Vaginal/Breast Feeding Additional Instructions: Follow-up with provider in clinic at 2 weeks and 6 weeks Activity Level: Activity as Tolerated Discharge Diet: Regular Follow Up Appointments: Mi Luciano MD [Primary Care Provider, Family Practice] [facility] Info Instructions
== END 2025-06-08 10:15 | disposition home or self-care (01) | DRG 560 ==
LOC: OB OUT 04:35 → OB 04:35
PROVIDERS: Admitting Provider Obstetrics & Gynecology; PCP Family Medicine; Visit Provider Obstetrics & Gynecology
DX: O34.219 Maternal care for unspecified type scar from previous cesarean delivery (principal); O70.0 First degree perineal laceration during delivery; O99.12 Other diseases of the blood and blood-forming organs and certain disorders involving the immune mechanism complicating childbirth; D68.51 Activated protein C resistance; O99.344 Other mental disorders complicating childbirth; F98.8 Other specified behavioral and emotional disorders with onset usually occurring in childhood and adolescence; Z37.0 Single live birth; Z3A.38 38 weeks gestation of pregnancy
CPT/HCPCS: 36415; 85018; 85025; 86780; 86850; 86900; 86901; A9270; J2003; J2405